=== PATIENT | male | born 1980 | race Caucasian/White ===

== ENCOUNTER 2019-01-16 17:38 | Emergency (ER) | payer MEDICAID ==
[~2019-01-16 17:38] MED LIST: AMOXICILLIN/CLAVULANATE POT 875/125 MG TAB PO SCH
[2019-01-16] MEDS ORDERED: AMOXICILLIN/CLAVULANATE POT 875/125 MG TAB PO ONE (19:21)
--- NOTE | 2019-01-16 19:22 | EDPHY ---
H & P Time Seen by Provider: 01/16/19 19:14 HPI/ROS: Chief complaint: Dog bites History of present illness: This is a 38-year-old male who presents to the emergency department for evaluation of dog bites. He states he was bitten by friends dog approximately 1 week ago. Primary bites to the right lower leg. Some abrasions to the arms. Initially seen at a hospital in [place], given tetanus, wounds cleaned, was started on Augmentin. However, he was arrested while at the hospital. He was apparently seen at [facility] while incarcerated. He was supposed to get a prescription for Augmentin so he could take a full course but did get them. He has since been released from correction. He reports the wounds are uncomfortable. No fever. No red streaking. However he would like to start antibiotics for potential infection. His tetanus has already been updated. Smoking Status: Heavy smoker Physical Exam: General: Alert, nontoxic. Skin: Wounds to the right lower leg that appear crusted over. Mild surrounding erythema. Abrasions to the upper extremities. musculoskeletal: Patient is moving the upper and lower extremities without difficulty. Ambulating well. Vascular: Radial pulses, DP and PT pulses 2+. Neurologic: Sensation intact in the upper and lower extremities. Constitutional: Initial Vital Signs Temperature (C) 36.8 C 01/16/19 17:50 Heart Rate 81 01/16/19 17:50 Respiratory Rate 18 01/16/19 17:50 Blood Pressure 147/92 H 01/16/19 17:50 O2 Sat (%) 94 01/16/19 17:50 O2 Delivery Mode Room Air Allergies/Adverse Reactions: No Known Allergies Allergy (Unverified 01/16/19 17:50) Home Medications: Medication Instructions Recorded Amoxicillin/Clavulanate Pot 875 mg PO BID #14 tab 01/16/19 [Augmentin 875 MG TAB (*)] MDM/Departure - MDM Imaging: I viewed and interpreted images myself Medications Given: Discontinued Medications Amoxicillin/Clavulanate Potassium (Augmentin 875mg) 875 mg PO EDNOW ONE PRN Reason: Protocol Stop: 01/16/19 19:22 Last Admin: 01/16/19 19:49 Dose: 875 mg ED Course/Re-evaluation: Patient seen under the supervision of my secondary supervising physician Dr. Andres Brandon. Patient presents to the emergency department for dog bites. These occurred a week ago. He is nontoxic. No evidence of an infection. His tetanus is al ready up to date. I will place him on Augmentin to ensure no developing infection. He is asked to follow up with primary care doctor for recheck. Return precautions are given. - Depart Disposition: Home, Routine, Self-Care Clinical Impression: Dog bite Qualifiers: Encounter type: initial encounter Qualified Code(s): W54.0XXA - Bitten by dog, initial encounter Condition: Good Instructions: Amoxicillin/Clavulanate Potassium (By mouth), Animal Bite (ED), Acute Wounds (ED) Additional Instructions: Follow-up with a primary care doctor for recheck Take antibiotics as prescribed until finished If symptoms worsen or new symptoms develop return to the emergency room for recheck Prescriptions: Amoxicillin/Clavulanate Pot [Augmentin 875 MG TAB (*)] 875 mg PO BID #14 tab Referrals: NONE *PRIMARY CARE P,. [Primary Care Provider] - As per Instructions
[2019-01-16 20:02] VITALS: BP 132/70
== END 2019-01-16 20:05 | disposition home or self-care (01) ==
DX: S81.831A Puncture wound without foreign body, right lower leg, initial encounter (principal); S40.811A Abrasion of right upper arm, initial encounter; S40.812A Abrasion of left upper arm, initial encounter; F17.200 Nicotine dependence, unspecified, uncomplicated; W54.0XXA Bitten by dog, initial encounter